=== PATIENT | female | born 1950 | race Caucasian/White ===

== ENCOUNTER 2017-08-15 08:20 | Outpatient (CLI) | payer MEDICARE, OTHER ==
--- NOTE | 2017-08-16 18:21 | Mammography Report ---
DIGITAL SCREENING MAMMOGRAM: 08/15/2017 CLINICAL INDICATION: A 67-year-old nulliparous patient with a family history of breast cancer for screening. COMPARISON: 11/2015 TECHNIQUE: Routine CC and MLO projections were obtained of the breasts. FINDINGS: The breasts again demonstrate fatty replacement. A few coarse, typically benign calcifications are present. No suspicious masses, clustered microcalcifications, or regions of architectural distortion are identified. IMPRESSION: BENIGN FINDINGS. RECOMMENDATION: Routine annual screening unless otherwise clinically indicated. BIRADS category 2 benign findings. STANDARD QUALIFYING STATEMENTS 1. This examination was reviewed with the aid of Computed-Aided Detection (CAD). 2. A negative or benign imaging report should not delay biopsy if clinically suspicious findings are present. Consider surgical consultation if warranted. More than 5% of cancers are not identified by imaging. 3. Dense breasts may obscure an underlying neoplasm. TD: 08/16/2017 18:20
== END 2017-08-15 08:21 | disposition home or self-care (01) ==
LOC: DI 08:20
PROVIDERS: ATTEND Internal Medicine
DX: Z12.31 Encounter for screening mammogram for malignant neoplasm of breast (principal); Z80.3 Family history of malignant neoplasm of breast
CPT/HCPCS: 77067

== ENCOUNTER 2017-12-02 08:17 | Outpatient (CLI) | payer MEDICARE, OTHER ==
--- NOTE | 2017-12-02 10:05 | DEXA Report ---
Procedure Date: 12/02/2017 Accession Number: [id number] / [id number] Procedure: DEX - Dexa Spine and/or Hip CPT Code: FULL RESULT: EXAM: Dexa Spine and/or Hip DATE: 12/02/2017 8:48 AM CLINICAL HISTORY: ENCOUNTER FOR SCREENING FOR OSTEOPOROSIS TECHNIQUE: Dual energy x-ray absorptiometry (DXA) was performed on a [employer] System. Regions measured are the AP Spine, femoral neck, and if needed forearm. COMPARISON: 12/16/2015 In accordance with the International Society for Clinical Densitometry (ISCD) guidelines, data from previous exams may be reanalyzed using current recommendations and techniques. This is done to allow a more accurate basis for comparison with the current study. FINDINGS: The data for the lumbar spine is as follows: BMD (g/cm/cm) T-SCORE Z-SCORE REGION L1 0.970 -1.3 0.7 L2 1.035 -1.4 0.6 L3 1.033 -1.4 0.6 L4 1.029 -1.4 0.6 TOTAL 1.018 -1.3 0.7 NOTE: All evaluable vertebrae are used for classification The data for the hip is as follows: BMD (g/cm/cm) T-SCORE Z-SCORE REGION Neck 0.759 -2.0 -0.2 TOTAL 0.707 -2.4 -0.8 NOTE: The femoral neck or total proximal femur, whichever is lowest, is used for classification. DXA RESULTS SUMMARY: Spine SCAN DATE AGE BMD CHANGE VS CHANGE VS PREVIOUS PREVIOUS % 12/02/2017 [age] 1.018 -0.033* -3.1* 12/16/2015 [age] 1[age]051 * Denotes significant change at the 95% confidence level. Denotes dissimilar scan types or analysis methods. DXA RESULTS SUMMARY: Hip SCAN DATE AGE BMD CHANGE VS CHANGE VS PREVIOUS PREVIOUS % [birth year][age]02/2017 67.6 0.707 -0.013 -1.8 12/16/2015 [age] 0[age]720 * Denotes significant change at the 95% confidence level. Denotes dissimilar scan types or analysis methods. IMPRESSION: THE WHO CLASSIFICATION BASED ON THE INTERNATIONAL REFERENCE STANDARD IS OSTEOPENIA. THE FRACTURE RISK IS INCREASED. There has been statistically significant interval decrease in bone mineral density of the lumbar spine from 12/16/2015. No statistically significant interval change in bone mineral density of the left hip. RECOMMENDATION: Patients with diagnosis of osteoporosis or osteopenia should have regular bone mineral density assessment. For those eligible for Medicare, routine testing is allowed once every 2 years. Testing frequency can be increased for patients who have rapidly progressing disease or for those who are receiving medical therapy to restore bone mass. COMMENT: World Health Organization (WHO) definitions for osteoporosis and osteopenia: NORMAL BMD: T-score at -1.0 or higher, fracture risk is low OSTEOPENIA BMD: T-score between -1.0 and -2.5, fracture risk is increased. OSTEOPOROSIS BMD: T-score at -2.5 or lower, fracture risk is high. National Osteoporosis Foundation recommends: 1. Obtain adequate dietary calcium (at least 1200 mg per day) and vitamin D (400-800 international units per day). 2. Participate, as appropriate, in regular weightbearing and muscle-strengthening exercise. 3. Avoid tobacco use and reduce alcohol and caffeine intake. 4. For more detailed information see the website at www.NOF.org.
== END 2017-12-02 08:18 | disposition home or self-care (01) ==
LOC: DI 08:17
PROVIDERS: ATTEND Internal Medicine
DX: M85.89 Other specified disorders of bone density and structure, multiple sites (principal); N95.8 Other specified menopausal and perimenopausal disorders
CPT/HCPCS: 77080

== ENCOUNTER 2018-08-22 08:01 | Outpatient (CLI) | payer MEDICARE, OTHER ==
--- NOTE | 2018-08-22 10:23 | Ultrasound Report ---
Reason: OTHER SPECIFIED DISEASES OF LIVER Procedure Date: 08/22/2018 Accession Number: [id number] / [id number] Procedure: US - Abdomen Limited CPT Code: FULL RESULT: EXAM: ABDOMEN ULTRASOUND LIMITED, RUQ EXAM DATE: 08/22/2018 08:12 AM. CLINICAL HISTORY: Other specified diseases of liver. COMPARISON: ABDOMEN LIMITED 12/04/2015 8:32 AM. TECHNIQUE: Real-time scanning was performed with static images obtained. FINDINGS: Liver: Mildly coarse liver parenchyma with distortion of the hepatic anatomy by previously identified hepatic cysts which partially contain thin septations and no solid soft tissue component or vascularity by color Doppler. The largest cyst measures up to 4.7 cm, enlarged compared to a previous 3.9 cm. Right lobe of the liver measures at least 9 cm. Main portal vein flow, limited visualization but by spectral and color Doppler flow is appropriately directed with normal waveform. Gallbladder: Gallbladder again demonstrates a 1.6 cm gallstone without ancillary evidence of cholecystitis. Normal wall thickness and negative sonographic Sagastume sign. Biliary System: CBD visualization is very limited in the more distal CBD measures 7 mm which is felt to be within normal limits at this position. No definite intrahepatic or extrahepatic ductal dilatation. Other: None. IMPRESSION: Redemonstration of hepatic cysts. RADIA
== END 2018-08-22 08:02 | disposition home or self-care (01) ==
LOC: DI 08:01
PROVIDERS: ATTEND Internal Medicine
DX: K76.89 Other specified diseases of liver (principal)
CPT/HCPCS: 76705

== ENCOUNTER 2020-04-23 14:12 | Outpatient (CLI) | payer MEDICARE, OTHER ==
--- NOTE | 2020-04-23 16:13 | XRAY Report ---
PROCEDURE: Chest 2 View X-Ray INDICATIONS: CHEST PAIN TECHNIQUE: 2 view(s) of the chest. COMPARISON: None. FINDINGS: Surgical changes and devices: None. Lungs and pleura: No pleural effusions or pneumothorax. Lungs are clear. Mediastinum: Mediastinal contours are normal. Heart size is normal. Bones and chest wall: No suspicious bony abnormalities. Soft tissues appear unremarkable. IMPRESSION: Normal for age, source of chest pain is not found. Reviewed by: Jatin Tejada MD on 04/23/2020 4:12 PM PST Approved by: Jatin Tejada MD on 04/23/2020 4:12 PM PST Station ID: [id number]
== END 2020-04-23 14:13 | disposition home or self-care (01) ==
LOC: DI 14:12
PROVIDERS: ATTEND Internal Medicine
DX: R07.9 Chest pain, unspecified (principal)
CPT/HCPCS: 71046

== ENCOUNTER 2020-06-13 09:56 | Outpatient (CLI) | payer MEDICARE, OTHER ==
--- NOTE | 2020-06-13 16:35 | Ultrasound Report ---
PROCEDURE: Abdomen Limited INDICATIONS: LIVER CYSTS TECHNIQUE: Real-time focused scanning was performed of the abdomen, with image documentation. COMPARISON: FINDINGS: Liver measures 14.1 cm in length. There is diffuse echogenic appearance of the liver. Mult iple large hepatic cysts are seen measuring up to 3.4 cm the left lobe, and up to 4.8 cm in the right lobe. No interval change Gallstone is present with nonmobile appearance measuring 1.2 x 1.2 x 1.2 cm. No definite gallbladder wall thickening, pericholecystic fluid or sonographic Sagastume sign. No intra or extra hepatic bile duct dilatation. Pancreas is sonographically unremarkable. Right kidney 9.3 cm in length. IVC appears patent. IMPRESSION: Coarsely echogenic liver suggesting hepatic steatosis/diffuse hepatocellular disease. Please correlat e with LFTs. Multiple hepatic cysts as before. Overall, no gross interval change Cholelithiasis without other sonographic criteria for acute cholecystitis. Reviewed by: Davis Frey MD on 06/13/2020 4:34 PM PST Approved by: Davis Frey MD on 06/13/2020 4:34 PM PST Station ID: [id number]
== END 2020-06-13 09:57 | disposition home or self-care (01) ==
LOC: DI 09:56
PROVIDERS: ATTEND Internal Medicine
DX: Q44.6 Cystic disease of liver (principal); K76.89 Other specified diseases of liver; K80.20 Calculus of gallbladder without cholecystitis without obstruction

== ENCOUNTER 2021-06-10 12:46 | Outpatient (CLI) | payer MEDICARE, OTHER ==
--- NOTE | 2021-06-11 07:25 | Mammography Report ---
BILATERAL DIGITAL SCREENING MAMMOGRAM 3D/2D: 06/10/2021 CLINICAL: Routine screening. Comparison is made to exams dated: 08/15/2017 mammogram and 12/16/2015 mammogram - [facility]. The tissue of both breasts is predominantly fatty. No significant masses, calcifications, or other findings are seen in either breast. There has been no significant interval change. IMPRESSION: NEGATIVE There is no mammographic evidence of malignancy. A 1 year screening mammogram is recommended. This exam was interpreted at Station ID: [id number]. NOTE: For mammograms, a report in lay terms will be sent to the patient. Approximately 15% of breast malignancies will not be visualized mammographically. In the management of a palpable breast mass, a negative mammogram must not discourage biopsy of a clinically suspicious lesion. Electronically Signed By: Rodri dykes/lara:06/10/2021 14:07:01 ACR BI-RADS Category 1: Negative [id number] PARENCHYMAL PATTERN: (F) - The breast(s) demonstrate(s) diffuse fatty replacement. BI-RADS CATEGORY: (1) - 1 RECOMMENDATION: (ANNUAL) - Recommend routine annual screening mammography. [id number] 1 year screening LATERALITY: (B)
== END 2021-06-10 12:47 | disposition home or self-care (01) ==
LOC: DI 12:46
PROVIDERS: ATTEND Internal Medicine
DX: Z12.31 Encounter for screening mammogram for malignant neoplasm of breast (principal)

== ENCOUNTER 2021-06-10 12:49 | Outpatient (CLI) | payer MEDICARE, OTHER ==
--- NOTE | 2021-06-10 16:45 | DEXA Report ---
PROCEDURE: Dexa Spine and/or Hip INDICATIONS: POST MENOPAUSAL TECHNIQUE: Dual energy x-ray absorptiometry (DXA) was performed on a [employer] System. Regions measur ed are the AP Spine, femoral neck, and if needed forearm. COMPARISON: 12/02/2017 and 12/16/2015. FINDINGS: Lumbar Spine: Bone Mineral Density 1.025 g/cm/cm,T score -1.3, osteopenia Left Hip: Bone Mineral Density 0.692 g/cm/cm,T score -2.5, osteoporosis Left Femoral Neck: Bone Mineral Density 0.736 g/cm/cm, T score -2.2, osteopenia (T score greater or equal to -1.0: NORMAL) (T score from -1.1 to -2.4: OSTEOPENIA) (T score less than or equal to -2.5 to: OSTEOPOROSIS) Impression: Osteoporosis. Bone mineral density has decreased 2.1% in the interval since prior exam ob tained 12/02/2017. Patients with diagnosis of osteoporosis or osteopenia should have regular bone mineral density assess ment. For those eligible for Medicare, routine testing is allowed once every 2 years. Testing frequ ency can be increased for patients who have rapidly progressing disease or for those who are receivin g medical therapy to restore bone mass. Reviewed by: Margaret Perez MD, PhD on 06/10/2021 4:43 PM PST Approved by: Margaret Perez MD, PhD on 06/10/2021 4:43 PM PST Station ID: [id number]
== END 2021-06-10 12:50 | disposition home or self-care (01) ==
LOC: DI 12:49
PROVIDERS: ATTEND Internal Medicine
DX: Z78.0 Asymptomatic menopausal state (principal); M81.0 Age-related osteoporosis without current pathological fracture

== ENCOUNTER 2022-06-15 10:57 | Emergency (ER) | payer MEDICARE, OTHER | END 2022-06-15 11:05 | disposition left against medical advice (07) | LOC: ED 10:57 | DX: Z53.29 Procedure and treatment not carried out because of patient's decision for other reasons (principal) ==

== ENCOUNTER 2023-09-27 07:35 | Outpatient (CLI) | payer MEDICARE, OTHER ==
--- NOTE | 2023-09-27 08:11 | CARDIAC PROCEDURE NOTE ---
Stress Test Report Service Date: 09/27/23 Service Time: 08:00 Ordering Provider: Lorenza Sebastian MD Indication for Test: Assess new atypical chest pain in a patient with NSTEMI last year, reportedly incompletely revascularized. Significant Medical History: Irma is referred for a treadmill stress echocardiogram today, to assess recent onset chest discomfort in the setting of an NSTEMI in early 2022. She describes the precipitous onset of severe chest pressure at that time, for which she was initially evaluated at the [place] walk-in [facility] and then transferred over to [facility]. She underwent cardiac catheterization and her understanding is there was a complex lesion that was incompletely revascularized. She completed the cardiac rehab program here at [facility] and was without recurrent symptoms until recently. In the interim she has remained active, with gardening and walking her dog 30-45 minutes daily on a route that includes hills, during which she does not experience chest pain or unexpected shortness of breath. However she has been experiencing what she describes as a momentary dull pain sensation in the center of her chest, different from what she experienced last year with a NSTEMI, not associated with diaphoresis, nausea or increased dyspnea. The onset is random, almost always at rest and often in the evenings. At times she also experiences a fluttering sensation in her chest, which Dr. Sebastian has attributed to PVCs. This has not been severe enough to cause her to feel lightheaded. Cardiac Risk Factors: Positive for known CAD (as above) and hyperlipidemia; negative for hypertension, diabetes and recent tobacco smoking (though did have a smoking history of 1/2-1 pack/day for 30-40 years, quitting approximately 20 years ago). Type of Stress Test: ETT with Echocardiography Procedure: -Exercise Treadmill Test- After signing informed consent, the patient underwent echo imaging at rest and then performed treadmill exercise using a Andriy protocol. The patient exercised for 9 minutes 56 seconds and achieved a peak heart rate of 124 (85 percent predicted maximum heart rate for age), and an estimated workload of 11.7 METS. The test was terminated due to fatigue/shortness of breath. Resting heart rate: 67 Peak heart rate: 124 Normal response to exercise. Resting BP: 135/68 Peak BP: 165/70 Normal BP response to exercise. Room air oxygen saturation ranged between 94-97% during exercise. Rhythm during exercise: Sinus rhythm with isolated PVCs (computer tabulates 68 total, though there may have been overcounting due to artifact). Symptoms: She denied experiencing any chest pain, pressure or discomfort of any kind. EKG at rest showed ormal sinus rhythm at 67 bpm with rare isolated, apparently uniform, PVCs, otherwise normal. EKG at peak stress showed no ischemia by EKG criteria. In Recovery HR rapidly normally dropped (by 32 bpm at one minute), with slower decline in BP (last recorded 164/77 at 5:45). Echo imaging performed at rest and with stress will be reported separately. IJah MD, was present throughout this treadmill stress study and supervised it in its entirety. Summary: 1) Exercise tolerance markedly above average for age and sex as evidenced by PAULETTE of -78%! 2) Normal resting EKG. 3) Adequate level of exercise was achieved on this treadmill stress test. 4) Normal BP response to exercise. 5) No ischemic changes by EKG criteria were seen at peak stress. 6) Echo image interpretation reveals normal left ventricular size, wall thickness and systolic function, with appropriate hyperdynamic augmentation of all segments with exercise, indicating no evidence of prior infarct or inducible ischemia. No significant valvular abnormality or elevation of estimated pulmonary artery systolic pressure seen on screening study. See separate report for more details. Conclusions and Recommendations: 1) These are reassuring treadmill stress echocardiogram results, with outstanding exercise time and no symptom, EKG or echo evidence of inducible ischemia. 2) She reported that during her time in the Cardiac rehab program she had difficulty achieving a significant heart rate increase with exercise. This was somewhat the case today but she did achieve 85% PMHR for EKG evaluation, with a very normal rapid decrease in heart rate that precluded obtaining echo images while she was in the diagnostic heart rate range. Therefore we cannot definitively exclude evidence of ischemia at a higher heart rate. 3) In spite of this caveat, the results remain favorable and her transient chest pain is unlikely to be of coronary origin.
== END 2023-09-27 07:36 | disposition home or self-care (01) ==
LOC: DI 07:35
PROVIDERS: ATTEND Internal Medicine
DX: I25.10 Atherosclerotic heart disease of native coronary artery without angina pectoris (principal); I25.2 Old myocardial infarction; Z87.891 Personal history of nicotine dependence
CPT/HCPCS: 93350

== ENCOUNTER 2023-11-17 08:00 | Outpatient (CLI) | payer MEDICARE, OTHER | END 2023-11-17 23:59 | disposition home or self-care (01) | LOC: LAB.S 08:00 | PROVIDERS: ATTEND Registered Nurse | DX: J02.9 Acute pharyngitis, unspecified (principal) ==

== ENCOUNTER 2024-01-26 10:59 | Outpatient (CLI) | payer MEDICARE, OTHER ==
--- NOTE | 2024-01-26 11:55 | DEXA Report ---
PROCEDURE: Dexa Spine and/or Hip INDICATIONS: OSTEOPOROSIS TECHNIQUE: Dual energy x-ray absorptiometry (DXA) was performed on a [employer] System. Regions measur ed are the AP Spine, femoral neck, and if needed forearm. COMPARISON: 06/10/2021 FINDINGS: Lumbar Spine: Bone Mineral Density: 1.025 g/cm/cm,T score: -1.3. Osteopenia Left Femoral Neck: Bone Mineral Density: 0.721 g/cm/cm, T score: -2.3. Left Hip: Bone Mineral Density: 0.690 g/cm/cm,T score: -2.5. Osteoporosis (T score greater or equal to -1.0: NORMAL) (T score from -1.1 to -2.4: OSTEOPENIA) (T score less than or equal to -2.5 to: OSTEOPOROSIS) Impression: By WHO criteria, this patient has osteoporosis. No statistical interval change in bone mineral density of the lumbar spine. No statistical interval c hange in bone mineral density of the hip. Patients with diagnosis of osteoporosis or osteopenia should have regular bone mineral density assess ment. For those eligible for Medicare, routine testing is allowed once every 2 years. Testing frequ ency can be increased for patients who have rapidly progressing disease or for those who are receivin g medical therapy to restore bone mass. Reviewed by: Micky Boggs MD on 01/26/2024 11:54 AM PDT Approved by: Micky Boggs MD on 01/26/2024 11:54 AM PDT Station ID: [id number]
== END 2024-01-26 11:00 | disposition home or self-care (01) ==
LOC: DI 10:59
PROVIDERS: ATTEND Internal Medicine
DX: M81.0 Age-related osteoporosis without current pathological fracture (principal)

== ENCOUNTER 2024-02-16 08:00 | Outpatient (CLI) | payer MEDICARE, OTHER | END 2024-02-16 23:59 | disposition home or self-care (01) | LOC: LAB.N 08:00 | PROVIDERS: ATTEND Registered Nurse | DX: R03.0 Elevated blood-pressure reading, without diagnosis of hypertension (principal); R73.03 Prediabetes; R35.0 Frequency of micturition; R82.90 Unspecified abnormal findings in urine | CPT/HCPCS: 87086 ==